=== PATIENT | female | born 1935 | race Caucasian/White ===

== ENCOUNTER 2019-02-01 08:21 | Emergency (ER) | payer MEDICARE ==
[~2019-02-01] VITALS: Ht 162.6 cm; Wt 56.7 kg
[2019-02-01 09:08] LABS: Source, Urine Clean Catch
[2019-02-01 09:11] LABS: Bilirubin, Urine Neg (Neg); Blood, Urine 2+ (Neg); Glucose Qualitative, Urine Neg (Neg); Ketones, Urine Neg (Neg); Leukocyte Esterase, Urine Neg (Neg); Nitrite, Urine Pos (Neg); Protein, Urine Neg (Neg); Specific Gravity, Urine 1.005 (1.003-1.022); Urobilinogen, Urine NORM (Normal)
[2019-02-01 09:17] LABS: Appearance, Urine Clear (Clear); Color, Urine Yellow (P-Yellow)
[2019-02-01 09:19] LABS: Bacteria Rare /hpf; Red Blood Cells, Urine 0-2 /hpf (0-2); Squamous Epithelial Cells Few /hpf (Few); White Blood Cells, Urine 0-2 /hpf (0-5)
[2019-02-01] MEDS ORDERED: LANOXIN125 MCG PO (09:22)
[2019-02-01] MEDS ORDERED: OMEPRAZOLE20 MG PO (09:22)
[2019-02-01] MEDS ORDERED: DRON400T PO (09:23)
[2019-02-01] MEDS ORDERED: Refresh Eye Dr1 EACH BOTHEYES (09:23)
[2019-02-01] MEDS ORDERED: Amlodipine Bes2.5 MG PO (09:23)
[2019-02-01] MEDS ORDERED: CARV3.125 (09:24)
[2019-02-01] MEDS ORDERED: IBESARTAN PO (09:24)
[2019-02-01] MEDS ORDERED: LEVSOD25 PO (09:25)
[2019-02-01] MEDS ORDERED: CEFP200 PO ×2 (09:31→09:40)
[2019-02-01] MEDS ORDERED: Pyridium200 MG PO (09:40)
== END 2019-02-01 09:49 | disposition home or self-care (01) ==
LOC: ER 08:21
PROVIDERS: Physician Assistant
DX: N39.0 Urinary tract infection, site not specified (principal); Z88.1 Allergy status to other antibiotic agents; Z88.8 Allergy status to other drugs, medicaments and biological substances; Z79.899 Other long term (current) drug therapy
CPT/HCPCS: 81001; 87086; 99283